=== PATIENT | female | born 1995 | race Two or more races ===

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

== ENCOUNTER 2021-12-21 10:19 | Emergency (ER) | payer MEDICAID ==
[~2021-12-21] VITALS: Ht 165.1 cm; Wt 77.0 kg
[2021-12-21 10:44] VITALS: BP 123/73
[2021-12-21] MEDS ORDERED: SULF1TAB48 MT (13:34)
[2021-12-21] MEDS ORDERED: CEPH500C2 MT (13:34)
[2021-12-21] MEDS ORDERED: CEFTRIAXONE SODIUM 1 G/VIAL IM ONE (13:45)
[2021-12-21] MEDS ORDERED: KETOROLAC 15MG/ML VIAL IM ONE (13:45)
[2021-12-21] MEDS ORDERED: LIDOCAINE HCL 1% 20ML VIAL (Pyxis) INJ INFIL ONE (13:45)
[2021-12-21] MEDS ORDERED: MORPHINE SULFATE 15MG TABLET SR PO ONE (14:15)
[2021-12-21] MEDS ORDERED: ONDANSETRON 4MG ODT PO ONE (14:15)
[2021-12-21] MEDS ORDERED: MORPHINE SULFATE 10MG/5ML ORAL SOLN UDC PO NR (15:00)
== END 2021-12-21 14:48 | disposition home or self-care (01) ==
LOC: ER 10:19
DX: L03.312 Cellulitis of back [any part except buttock and flank] (principal); F12.10 Cannabis abuse, uncomplicated
CPT/HCPCS: 81025; 96372; 99284; J0696; J3490; J1885; Q0162